=== PATIENT | female | born 1990 | race Caucasian/White ===

== ENCOUNTER 2019-03-22 12:56 | Emergency (ER) | payer OTHER ==
[~2019-03-22] VITALS: Ht 167.6 cm; Wt 59.4 kg
[2019-03-22 13:42] VITALS: BP 109/59; Ht 167.6 cm; Wt 59.4 kg
== END 2019-03-22 14:45 | disposition home or self-care (01) ==
LOC: ED 12:56
DX: J11.1 Influenza due to unidentified influenza virus with other respiratory manifestations (principal)
CPT/HCPCS: J1885